=== PATIENT | female | born 1980 | race Caucasian/White ===

== ENCOUNTER 2024-05-20 10:10 | Emergency (ER) | payer SELFPAY ==
--- NOTE | ~2024-05-20 | XR_ITS ---
EXAMINATION: XR CERVICAL SPINE CLINICAL INFORMATION: pain COMPARISON: None available. TECHNIQUE: 3 views of the cervical spine were obtained. FINDINGS: No scoliosis. Straightening of the normal lordosis. No evidence of fracture, compression deformity, traumatic subluxation, or suspicious bone lesion. Craniocervical junction and C1-2 articulation are intact and aligned. Normal facet alignment. Moderate disc degeneration focally at C5-6 and C6-7. No prevertebral or paravertebral soft tissue abnormality. Lung apices clear. XR/XR cervical spine 3V IMPRESSION: No plain film evidence of acute cervical spine fracture or injury. Disc degeneration C5-6 and C6-7. Electronically signed by: Truman Lisa MD 05/20/2024 11:05 AM CARLEEN
[2024-05-20 10:17] VITALS: BP 182/92; PULSE 89; RESP 16; TEMP 36.3; O2SAT 100; BMI 29.3
--- OUTSIDE RECORDS SUMMARY | 2024-05-20 20:03 | XMS_ITS ---
Author Organization [facility] adriel [place] Address [address] [place] [address] Care Team Providers Care Turning Sander Tender Name Role Phone Gregg Romero MD Primary Care Provider Evin Shea Unavailable [phone] Allergies No Known Allergies Medications Medication SIG (Take, Route, Fr equency, Duration) Notes Start Date End Date Status Diflucan 200 MG 1 tablet Orally for 10 day(s) Not-Taking Social History Tobacco Use: Social History Observation Description Date Details (start date - stop date) Former Smoker NA - NA Tobacco Use/Smoking Question Answer Notes Are you a: former smoker Additional Findings: Tobacco Non-User Current no n-smoker Alcohol Screen Question Answer Notes Did you have a drink containing alcohol in the p ast year? Yes Points 0 Interpretation Negative Tobacco use other than smoking: Question Answer Notes Are you an other tobacco user? No Vital Signs Height 5ft 8in in 05/31/2023 Weight 165 lbs 05/31/2023 BMI 25.09 kg/m2 05/31/2023 Encounters Encounter Location Date Provider Diagnosis [facility] [address] [address] 05/31/2023 Evin Ruano Tinea unguium B35.1 ; Skin disease L98.9 ; Hallux valgus (acquired), left foot M20.12 ; Hallux valgus (acquired), right foot M20.11 ; Pain in left foot M79.672 and Pain in right foot M79.671 Assessments Encounter Date Diagnosis (ICD Code) Assessment Notes Treatment Notes Treatment Clinical Notes Section Notes 05/31/2023 Tinea unguium (ICD-10 - B35.1) 05/31/2023 Skin disease (ICD-10 - L98.9) 05/31/2023 Hallux valgus (acquired), left foot (ICD-10 - M20.12) 05/31/2023 Hallux valgus (acquired), right foot (ICD-10 - M20.11) 05/31/2023 Pain in left foot (ICD-10 - M79.672) 05/31/2023 Pain in right foot (ICD-10 - M79.671) Plan Of Treatment Next Appt Details Follow Up: prn, Reason: Progress Notes * Mela DENTONeeDOB:1980 (43 yo F)Acc No.[id number]:05/31/2023 Progress Note Patient:?Erendira Denton Provider:?Evin Ruano DPM :1980???Age:43 Y???Sex:Female D ate:05/31/2023 Address:[address] [place] [address] [facility] Pcp:Gregg Romero MD Subjective: * Chief Complaints: * ??? 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 * ROS:?General/Constitutional:?Nausea?denies.?Vomiting?denies.?Hunger Thirst?denies.?Loss appetite?denies.?Chills?denies.?Fatigue?denies.?Fever?denies.?Night Sweats?denies.?Unexplained weight loss?denies.?Unexplained weight gain?denies.?HEENTM:?Dentures?denies.?Dizziness?denies.?Glasses/contacts?denies.?Retinopathy?de nies.?Blurred/double vision?denies.?TMJ?denies.?Discharge/drainage?denies.?Implants?denies.?Sore throat?denies.?Dental implants?denies.?Hard of hearing ?denies.?Difficulty chewing/swallowing/speaking?denies.?Nose bleeds?denies.?Sore mouth?denies.?Respiratory:?On Oxygen?denies.?Pneumonia/pleurisy?denies.?Bronchitis?denies.?Emphysema?denies.?C oughing?denies.?Cough blood?denies.?Shortness of breath?denies.?Wheezing?denies.?Cardiovascular:?Pacemaker?denies.?MVP?denies.?WPW?denies.?CHF?denies.?Heart attack?denies.?Septal defect?denies.?Rapid beat?denies.?Chest pain ?denies.?Atrial Fib.?denies.?Murmur/Palpitations?denies.?Gastrointestinal:?Hemorrhoids?denies.?Stomach/Abdominal pain?denies.?Dark blood stool?denies.?Irritable bowel ?denies.?Constipation?denies.?Diarrhea?denies.?Hematology:?Swelling?denies.?Clots?denies.?Varicose Veins?admits.?Bruising?denies.?Bleeding problem?denies.?Genitourinary:?Blood urine?denies.?Frequent/Painfu/urination/bladder control?denies.?Kidney stones?denies.?Infection (UTI)?denies.?Nephropathy?denies.?sex trans dis (STD)?denies.?Prostate?denies.?Musculoskeletal:?Hammertoes?denies.?Bunions?admits.?Back Pain?denies.?Muscle Cramps/ Resting?denies.?Muscle cramps / walking?denies.?Generalized aches and pains?denies.?Weakness?denies.?Integ.:?Muse?denies.?Scars?denies.?Corns/calluses?denies.?Ingrown nails?denies.?Painful nails?denies.?Open Sores?denies.?Rashes?denies.?Neurologic:?Difficulty sleeping?denies.?Brain disorder?denies.?Numbness?denies.?Balance trouble?denies.?Confusion?denies.?Fainting/blackouts?denies.?Tingling?denies.?Tr emors?denies.? * Medical History:? * Surgical History:?guera 2015 * Hospitalization/Major Diagno stic Procedure:?No Hospitalization History. * Family History:?Mother: farzad e, foot problems.?Father: alive.?Paternal Grand Mother: diagnosed with Diabetic - NIDDM.? * Social History:?Tobacco Use:?Tobacco Use/Smoking?Are you a:?former smoker ?Additional Findings: Tobacco Non-User?Current non-smoker ?Tobacco use other than smoking?Are you an other tobacco user??No ???Drugs/Alcohol:?Drugs?Have you used drugs other than those for medical reasons in the past 12 months??No ?Alcohol Screen?Did you have a drink containing alcohol in the past year??Yes ?Points?0 ?Interpretation?Negative ???Miscellaneous:?Caffeine: yes. ?Children: yes, 1. ?Marital status: single. * Medications:?Not-Taking/PRND iflucan 200 MG Tablet 1 tablet Orally Medication List reviewed and reconciled with the patientNot-Taking/PRN Diflucan 200 MG Tablet 1 tablet Orally Medication List reviewed and reconciled with the patient * Allergies:?N.K.D.A.yes[Aller gies Verified] Objective: * Vitals:?Ht: 5ft 8in, Wt:165, BMI:25.09, Shoe size: 8, Ht-cm: 172.72 cm, Wt-k.84 kg. * Examination: ???General Examination: ?GENERAL APPEARANCE:?Reveals a pleasant, alert, well nourished, well- developed, well hydrated individual, who demonstrates proper attention to hygiene/body habitus, and is in no acute distress.?ORIENTED:?person, place, and time.?Neurological: ?SENSORY:?Neurological exam reveals intact sensorium, pain sensation normal, vibration sensation intact, pinprick sensation is normal in the lower extremities, Pt denies, anesthesia, burning, paresthesia, tingling, B/L, Neurological exam demonstrates mild pop grecia first mtpj.?TINEL'S COMPRESSION:?Negative tarsal tunnel, marti pedis, and medial calcaneal nerves B/L.?BABINSKI REFLEX:?absent.?Neuroma Pain: ?PALPATION:?No interspace pain noted on palpation.?Vascular: ?DP PULSES:?2/4, B/L.?PT PULSES:?2/4, B/L.?CAPILLARY FILL TIME:?immediate, all digits, B/L.?VARICOSITIES:?absent.?Dermatologic: ?SKIN FINDINGS:?Skin exam reveals normal color, texture, elasticity, and turgor. There are no masses, nor excrescences. The interspaces are clear, B/L.?Orthopedic: ?MUSCLE STRENGTH:?5/5 all groups in a symmetrical fashion , B/L , 5/5 all groups in a symmetrical fashion , B/L.?GAIT ABNORMALITY:?pronated, abducted, B/L.?BUNION:? Medially prominent 1st MPJ, (+) Pain on palpation, B/L, Lateral tracking 1st MPJ incompletely reducible--right more sever than left and left had previous sx.?Nails: ?NAILS are:?Elongated, overgrown, dystrophic, lytic, greater than 3mm thick, discolored and friable with crumbly malodorous subungual debris, with pain on palpation , TA, T3, T6, proximal clearing of nail __95__ percent.?Ingrown Nail: ?INSPECTION:? Reveals nail incurvation, pain on palpation, groove hypertrophy, groove ischemia, Bilateral nail borders, TA.? Assessment: * Assessment: 1.?Tinea unguium - B35.1?2.? Hallux valgus (acquired), left foot - M20.12?3.?Skin disease - L98.9 (Primary)?4.?Hallux valgus (acquired), right foot - M20.11?5.?Pain in left foot - M79.672?6.?Pain in right foot - M79.671? Plan: * Treatment: * Procedure Codes:? * Preventive Medicine:? ??Counseling:?Discussion:?-13: Office or other outpatient visit for the evaluation and management of an established patient, which required a medically appropriate history and/or examination and LOW level of DECISION MAKING for: 1 STABLE ACUTE UNCOMPLICATED PROBLEM, 2 OR MORE MINOR PROBLEMS, OR 1 STABLE CHRONIC PROBLEM, THAT POSE(S) A LOW RISK FOR MORBIDITY/MORTALITY. The visit on the day of the encounter encompassed interpreting the data and educating the patient as to the nature of their condition, treatment options available according to their individual PMH, meds, allergies, and overall health/living conditions, as well as any potential risks or complications that may occur from a failure to adhere to, and participate in, the recommended course of therapy. The discussion included a complete verbal, and/or written explanation of the examination results, any x-rays taken, the proposed diagnosis, and outline of the treatment plan. A schedule for future care needs was also explained. The patient verbalized an understanding of the instructions at this time and agreed to be an active participant in their treatment. If the patient should think of any questions or concerns after the visit, I have encouraged the patient to call the office--continue with topical vicks qd hs for 3 months.? * Follow Up:?prn * Images: * Sign off status: Completed true * Provider:?Evin Ruano DPM Date:? 024 Generated for Khadijah jackson/Michell/Jc on:?05/20/2024 08:03 PM EST History and Physical Notes * HPI (History of Present Illness) Category Sub-Category Detail Notes Category Not es Skin problems Nature: discolored and thick , disc olored Location: Left , 1st Duration: a year Onset/Cause: unknown , denies inj ury Course: improved Aggravated by: no aggrevating facto rs Treatments: oral diflucan once w eekly since 09/21--finished 03/23 Misc: pt works at [employer] as P [employer] Foot Pain Aggrevated: shoes Onset/Cause: genetic Course: unchanged Duration: several years Nature: burning Treatments: change in shoes; pt hasn't complied with referral for mini-bunion sx at [facility] Location Right , Great toe jorje int more than left Examination Category Sub-Category Detail Notes Category Not es Ingrown Nail INSPECTION: Reveals nail inc urvation, pain on palpation, groove hypertrophy, groove ischemia, Bilateral nail borders, TA Neuroma Pain PALPATION: No interspace pain noted on palpation Neurological SENSORY: Neurological exa m reveals intact sensorium, pain sensation normal, vibration sensation intact, pinprick sensation is normal in the lower extremities, Pt denies, anesthesia, burning, paresthesia, tingling, B/L, Neurological exam demonstrates mild pop grecia first mtpj BABINSKI REFLEX: absent TINEL'S COMPRESSION: Negative tarsal haily radha, marti pedis, and medial calcaneal nerves B/L Dermatologic SKIN FINDINGS: Skin exam reveal s normal color, texture, elasticity, and turgor. There are no masses, nor excrescences. The interspaces are clear, B/L Orthopedic GAIT ABNORMALITY: pronated, abducted, B/L BUNION: Medially prominent 1 st MPJ, (+) Pain on palpation, B/L, Lateral tracking 1st MPJ incompletely reducible--right more sever than left and left had previous sx MUSCLE STRENGTH: 5/5 all groups in a symmetrical fashion , B/L , 5/5 all groups in a symmetrical fashion , B/L General Examination GENERAL APPEARANCE: Reveals a pleasant, alert, well nourished, well-developed, well hydrated individual, who demonstrates proper attention to hygiene/body habitus, and is in no acute distress ORIENTED: person, place, and t angeli Vascular DP PULSES (B): 2/4, B/L PT PULSES (B): 2/4, B/L CAPILLARY FILL TIME: immediate, all digi ts, B/L VARICOSITIES: absent Nails NAILS are: Elongated, overg rown, dystrophic, lytic, greater than 3mm thick, discolored and friable with crumbly malodorous subungual debris, with pain on palpation , TA, T3, T6, proximal clearing of nail __95__ percent
--- OUTSIDE RECORDS SUMMARY | 2024-05-20 20:03 | XMS_ITS | Patient Health Record ---
Author Organization [facility] adriel [place] Address [address] [place] [address] Care Team Providers Care Dining Host Name Role Phone Gregg Romero MD Primary Care Provider Evin Shea Unavailable [phone] Allergies No Known Allergies Reason For Referral No Information Medications Medication SIG (Take, Route, Fr equency, [...] Are you an other tobacco user? No Problems Problem Type SNOMED Code ICD Code Onset Dates Problem Status W/U Status Risk Notes Problem Pain in limb (24019386) Pain in unspecified foot (M79.673) Active confirmed Problem Acquired hallux valgus (17009743) Hallux valgus (acquired), left foot (M20.12) Active confirmed Problem Acquired hallux valgus (29506704) Hallux valgus (acquired), right foot (M20.11) Active confirmed Vital Signs Height 5ft 8in in 05/31/2023 Weight 165 lbs 05/31/2023 BMI 25.09 kg/m2 05/31/2023 Encounters Encounter [facility] [address] [place] [address] 05/31/2023 Evin Ruano Tinea unguium B35.1 ; Skin disease L98.9 ; Hallux valgus (acquired), left foot M20.12 ; Hallux valgus (acquired), right foot M20.11 ; Pain in left foot M79.672 and Pain in right foot M79.671 Assessments Encounter Date Diagnosis (ICD Code) Assessment Notes Treatment Notes Treatment Clinical Notes Section Notes 05/31/2023 Tinea unguium (ICD-10 - B35.1) 05/31/2023 Hallux valgus (acquired), left foot (ICD-10 - M20.12) 05/31/2023 Skin disease (ICD-10 - L98.9) 05/31/2023 Hallux valgus (acquired), right foot (ICD-10 - M20.11) 05/31/2023 Pain in left foot (ICD-10 - M79.672) 05/31/2023 Pain in right foot (ICD-10 - M79.671) Plan Of Treatment Pending Test Test Name Order Date *Liver Function Test (LFT) 08/03/2022 X ray : Foot, left 3V 08/03/2022 X ray : Foot, right 3V 08/03/2022 Insurance Providers Payer Name Payer Address Payer Phone Subscriber Number Group Number Insured Name Patient Relationship to Insured Coverage Start Date Coverage End Date [facility] [address] [facility] [place] [address] [id number] Erendira Denton Self - patient is the insured Medical (General) History Medical History History ICD Code Chicken pox Joint implants/screws Surgical History Surgery Date(Month/Year) bunion 03/2016
--- OUTSIDE RECORDS SUMMARY | 2024-05-20 20:03 | XMS_ITS ---
Author Organization [facility] Address [address] [place] [address] Care Team Providers Care Reception Interviewer Name Role Phone Nick CURRY, Gregg Primary Care Provider Evin Shea Unavailable [phone] Ricketts Encounters Encounter Location Date Provider Diagnosis [facility] [address] [place] [id number] 02/19/2023 Evin Ruano Plan Of Treatment No Information Progress Notes * Mela DENTONeeDOB:1980 (44 yo F)Acc No.[id number]:02/19/2023 Progress Note Patient:Erendira FARRIS Provider:?Evin Ruano DPM :1980???Age:42 Y???Sex:Female D ate:02/19/2023 Address:[id number] Pcp:Gregg Romero MD Subjective: * Chief Complaints: * ???1. Dr Ricketts. * Medical History:? Objective: * Vitals:? Assessment: Plan: * Treatment: * Images: * The named appointment provid er may or may not be the originator of this progress note, and it is not deemed complete until electronically signed by the appointment provider. Sign off status: Pending * Provider:Brijesh Ruano DPM Date:? 023 Generated for Printi ng/Faxing/eTransmitting on:?05/20/2024 08:03 PM EST
== END 2024-05-20 20:02 | disposition left against medical advice (07) ==
LOC: HO.ED 20:01
PROVIDERS: Emergency Provider Emergency Medicine
DX: M54.2 Cervicalgia (principal); Z53.21 Procedure and treatment not carried out due to patient leaving prior to being seen by health care provider
CPT/HCPCS: 72040; 99281

== ENCOUNTER → 2024-05-20 10:58 | Outpatient (BNV) | payer OTHER, SELFPAY | PROVIDERS: Visit Provider Radiology Diagnostic Radiology | DX: M50.322 Other cervical disc degeneration at C5-C6 level (principal); M50.323 Other cervical disc degeneration at C6-C7 level | CPT/HCPCS: 72040 ==